=== PATIENT | male | born 1970 | race Caucasian/White ===

== ENCOUNTER 2016-07-25 11:50 | Observation (INO) ==
--- NOTE | 2016-07-25 11:57 | Emergency Department Note ---
Disposition Clinical Impression: Chest pain Disposition: Admitted As Inpatient Condition: Fair General Adult HPI - General Stated complaint: Chest pain Time Seen by Provider: 07/25/16 11:53 - Related Data Home Medications Medication Instructions Recorded Confirmed Lisinopril [Zestril] 20 mg PO DAILY 07/25/16 07/25/16 Multivitamin [Multi-Day Vitamins] 1 tab PO DAILY 07/25/16 07/25/16 Omeprazole [PriLOSEC] 20 mg PO DAILY 07/25/16 07/25/16 Allergies Allergy/AdvReac Type Severity Reaction Status Date / Time bupropion [From Wellbutrin] Allergy Hives Verified 03/28/15 11:56 Past Medical History - Past Medical History Medical history: Reports: hypertension - Social History Smoking Status: Former smoker (+second hand smoke exposure) Smokeless Tobacco Status: No Alcohol use: Reports: occasionally Course Vital Signs Temperature 98.6 F 07/25/16 11:52 Pulse Rate 76 07/25/16 11:52 Respiratory Rate 18 07/25/16 11:52 Blood Pressure 166/97 07/25/16 11:52 O2 Sat by Pulse Oximetry 97 07/25/16 11:52 Temperature 98.3 F 07/25/16 18:43 Pulse Rate 53 07/25/16 18:43 Respiratory Rate 17 07/25/16 18:43 Blood Pressure 138/86 07/25/16 18:43 O2 Sat by Pulse Oximetry 98 07/25/16 18:43 Medical Decision Making - Lab Data Result diagrams: 07/25/16 12:23 07/25/16 12:23 Lab Results 07/25/16 07/25/16 07/25/16 Range/Units 12:23 12:23 12:23 WBC 7.8 (4.3-11.1) K/mcL RBC 4.74 (4.19-5.50) M/mcL Hgb 14.3 (12.9-16.9) g/dL Hct 41.8 (37.5-50.1) % MCV 88.2 (83.0-100.0) fL MCH 30.2 (28.0-33.3) pg MCHC 34.2 (31.6-35.5) g/dL RDW 12.4 (11.5-14.5) % Plt Count 274 (140-400) K/mcL MPV 9.8 (9.4-12.4) fL Immature Gran % 0.4 (0-4) % Seg Neutrophils % 63.6 % Lymphocytes % 25.1 % Monocytes % 6.3 % Eosinophils % 3.8 % Basophils % 0.8 % Neutrophils # 5.0 (1.6-8.9) K/mcL Lymphocytes # 2.0 (0.6-4.6) K/mcL Monocytes # 0.5 (0.0-1.3) K/mcL Eosinophils # 0.3 (0.0-0.6) K/mcL Basophils # 0.1 (0.0-0.2) K/mcL PT 11.5 (9.4-12.1) Seconds INR 1.1 APTT 37.2 H (26.0-36.0) Seconds Sodium 141 (136-145) mEq/L Potassium 3.9 (3.5-4.5) mEq/L Chloride 108 (98-109) mEq/L Carbon Dioxide 25 (19-29) mEq/L BUN 19 (8-26) mg/dL Creatinine 0.91 (0.72-1.25) mg/dL Est GFR ( Amer) > 60 (> 60) Est GFR (Non-Af Amer) > 60 (> 60) BUN/Creatinine Ratio 21 (6-26) Glucose 121 H (70-99) mg/dL Calculated Osmolality 296 (280-300) Calcium 8.9 (8.6-10.8) mg/dL Troponin I (0-0.03) ng/mL 07/25/16 Range/Units 12:23 WBC (4.3-11.1) K/mcL RBC (4.19-5.50) M/mcL Hgb (12.9-16.9) g/dL Hct (37.5-50.1) % MCV (83.0-100.0) fL MCH (28.0-33.3) pg MCHC (31.6-35.5) g/dL RDW (11.5-14.5) % Plt Count (140-400) K/mcL MPV (9.4-12.4) fL Immature Gran % (0-4) % Seg Neutrophils % % Lymphocytes % % Monocytes % % Eosinophils % % Basophils % % Neutrophils # (1.6-8.9) K/mcL Lymphocytes # (0.6-4.6) K/mcL Monocytes # (0.0-1.3) K/mcL Eosinophils # (0.0-0.6) K/mcL Basophils # (0.0-0.2) K/mcL PT (9.4-12.1) Seconds INR APTT (26.0-36.0) Seconds Sodium (136-145) mEq/L Potassium (3.5-4.5) mEq/L Chloride (98-109) mEq/L Carbon Dioxide (19-29) mEq/L BUN (8-26) mg/dL Creatinine (0.72-1.25) mg/dL Est GFR ( Amer) (> 60) Est GFR (Non-Af Amer) (> 60) BUN/Creatinine Ratio (6-26) Glucose (70-99) mg/dL Calculated Osmolality (280-300) Calcium (8.6-10.8) mg/dL Troponin I 0.00 (0-0.03) ng/mL Attestation Statement - Attestation Attestation: I examined this patient and my medical decision-making was reviewed with the COLLECTION SYSTEM[employer] MODELER/PA/Advanced Practice Nurse/Resident Physician. I agree with the documented findings, disposition and treatment plan as described except to the extent set forth below. face to face time provided Patient presents with chest pain. He appears in no acute distress on exam. EKG reviewed by me. Patient evaluated in conjunction with the resident physician Dr. Tavera
[2016-07-25] MEDS ORDERED: 0.9 % Sodium Chloride 500 ML IVC ONE (12:00)
[2016-07-25] MEDS ORDERED: Nitroglycerin 0.4 MG TAB.SUBL SL ONE (12:00)
[2016-07-25] MEDS ORDERED: Aspirin 81 MG TAB.CHEW PO ONE (12:00)
--- NOTE | 2016-07-25 12:07 | Emergency Department Note ---
Disposition Clinical Impression: Chest pain Disposition: Admitted As Inpatient Condition: Fair Referrals: Kevin Burrows MD [Primary Care Provider] - Time of Disposition: 13:24 Chest Pain HPI - General Chief Complaint: ED Chest Pain Stated Complaint: Chest pain Time Seen by Provider: 07/25/16 11:53 Source: patient Mode of arrival: ambulatory Limitations: no limitations Vital Signs Reviewed: Yes Nursing Notes Reviewed: Yes - History of Present Illness HPI Narrative: Patient presents to the ED with the chief complaint of chest pain. Patient states he is relatively healthy. He used to have high blood pressure, that this resolved a few years ago after he lost weight and quit smoking. States he has only recently been placed back on lisinopril due to recurrent high blood pressure. States that over the last week he has had intermittent chest discomfort. States that sometimes it will happen while he is at work at [employer] and other times it will happen when he is lying still. He describes it as a very sore type pain in his left upper outer chest and states that it almost feels like it is bruised but he has no injury and it does not really hurt to push on it. He also describes a heavy pressure in his chest at times. He states that when this pain comes on, he will get short of breath and feel very lightheaded like he is going to pass out. He states he has had a few near syncopal episodes in the last week. He was at a golf tournament last week and could not finish the last hold due to a near syncopal episode. He attributed that to dehydration, but was having similar symptoms again afterwards. He presents today because while he was at work. He went to have his blood pressure monitored and it was very elevated. They asked him about his chest and he stated that he was still having some chest discomfort, so they transferred him here. Has no history of coronary artery disease, but is also never been evaluated to his knowledge. No family history. No history DVT or PE. No history of malignancy. Severity scale (1-10): 3 - Related Data Home Medications Medication Instructions Recorded Confirmed Simvastatin 03/28/15 Previous Rx's Medication Instructions Recorded Albuterol Sulfate [Albuterol 2 puff IH Q4HR PRN #1 unit 03/28/15 Inhaler] Azithromycin [Azithromycin 6-Tab 250 mg PO DAILY #6 tab 03/28/15 Pack] Ipratropium/Albuterol Neb [Duoneb] 3 ml IH Q4HR PRN #50 vial.neb 03/28/15 Nebulizer Accessories [Pillow Mask] 1 each MC PRN PRN #1 each 03/28/15 PredniSONE [Prednisone] 40 mg PO DAILY #10 tablet 03/28/15 Promethazine/Dextromethorphan 5 ml PO Q4H PRN #120 ml 03/28/15 [Promethazine-Dm Syrup] Allergies Allergy/AdvReac Type Severity Reaction Status Date / Time bupropion [From Wellbutrin] Allergy Hives Verified 03/28/15 11:56 All systems ED: reviewed and negative except as stated. Constitutional: Reports: weakness (generalized during near syncopal episode ) Eyes: Denies: vision change Cardiovascular: Reports: chest pain, syncope (near ). Denies: dyspnea on exertion Respiratory: Reports: dyspnea Neurological: Reports: weakness (generalized during near syncope episodes ) Chest Pain PMH - Past Medical History Medical history: Reports: hypertension - Social History Smoking Status: Former smoker (+second hand smoke exposure) Alcohol use: Reports: occasionally Drug use: Reports: none Physical Exam - General Limitations: no limitations General appearance: alert, in no apparent distress - Head Head exam: atraumatic, normocephalic, normal inspection - Eye Eye exam: Present: normal appearance, PERRL, EOMI - ENT ENT exam: normal exam, normal oropharynx, mucous membranes moist - Neck Neck exam: Present: normal inspection, full ROM, trachea midline - Chest Chest inspection: Present: normal inspection, symmetric chest wall rise. Absent : tenderness (No reproducible chest wall tenderness) - Respiratory Respiratory exam: Present: normal lung sounds bilaterally - Cardiovascular Cardiovascular exam: Present: regular rate, normal rhythm, normal heart sounds - Abdominal Exam Abdominal exam: Present: soft, Non-Tender. Absent: tenderness, distention, guarding, rebound, rigidity - Extremities Exam Extremities exam: Present: normal inspection, full ROM, normal capillary refill. Absent: pedal edema - Neurological Exam Neurological exam: Present: alert, oriented X3 - Psychiatric Psychiatric exam: Present: normal affect, normal mood - Skin Skin exam: Present: warm, dry, intact, normal color Course Course Narrative: 45 -year-old male in no acute distress presenting with intermittent left upper outer chest pain and heaviness. States it feels like a bruise, but has not done anything to bruise it. It comes and goes. Concern due to distant family members having heart disease around his age. - Reevaluation(s) Reevaluation #1: Labs are unremarkable. Chest x-ray is normal. EKG is normal. However, the patient is describing some concerning symptoms for angina. The nitroglycerin did relieve his pain. After 1 dose. He is also complaining of these exertional near syncope episodes. A bedside ultrasound performed by another resident showed very poor contractility and suspected low EF. This was shown to the hospitalist and agreed. We will admit the patient for further workup. He has not had a cardiac workup previously and I do think he would benefit given his symptoms. Patient's agreeable with plan. Vital Signs Temperature 98.6 F 07/25/16 11:52 Pulse Rate 76 07/25/16 11:52 Respiratory Rate 18 07/25/16 11:52 Blood Pressure 166/97 07/25/16 11:52 O2 Sat by Pulse Oximetry 97 07/25/16 11:52 Temperature 98.6 F 07/25/16 11:52 Pulse Rate 64 07/25/16 13:15 Respiratory Rate 18 07/25/16 13:15 Blood Pressure 141/88 07/25/16 13:15 O2 Sat by Pulse Oximetry 97 07/25/16 13:15 Chest Pain - Lab Data Result diagrams: 07/25/16 12:23 07/25/16 12:23 Lab Results 07/25/16 07/25/16 07/25/16 Range/Units 12:23 12:23 12:23 WBC 7.8 (4.3-11.1) K/mcL RBC 4.74 (4.19-5.50) M/mcL Hgb 14.3 (12.9-16.9) g/dL Hct 41.8 (37.5-50.1) % MCV 88.2 (83.0-100.0) fL MCH 30.2 (28.0-33.3) pg MCHC 34.2 (31.6-35.5) g/dL RDW 12.4 (11.5-14.5) % Plt Count 274 (140-400) K/mcL MPV 9.8 (9.4-12.4) fL Immature Gran % 0.4 (0-4) % Seg Neutrophils % 63.6 % Lymphocytes % 25.1 % Monocytes % 6.3 % Eosinophils % 3.8 % Basophils % 0.8 % Neutrophils # 5.0 (1.6-8.9) K/mcL Lymphocytes # 2.0 (0.6-4.6) K/mcL Monocytes # 0.5 (0.0-1.3) K/mcL Eosinophils # 0.3 (0.0-0.6) K/mcL Basophils # 0.1 (0.0-0.2) K/mcL PT 11.5 (9.4-12.1) Seconds INR 1.1 APTT 37.2 H (26.0-36.0) Seconds Sodium 141 (136-145) mEq/L Potassium 3.9 (3.5-4.5) mEq/L Chloride 108 (98-109) mEq/L Carbon Dioxide 25 (19-29) mEq/L BUN 19 (8-26) mg/dL Creatinine 0.91 (0.72-1.25) mg/dL Est GFR ( Amer) > 60 (> 60) Est GFR (Non-Af Amer) > 60 (> 60) BUN/Creatinine Ratio 21 (6-26) Glucose 121 H (70-99) mg/dL Calculated Osmolality 296 (280-300) Calcium 8.9 (8.6-10.8) mg/dL Troponin I (0-0.03) ng/mL 07/25/16 Range/Units 12:23 WBC (4.3-11.1) K/mcL RBC (4.19-5.50) M/mcL Hgb (12.9-16.9) g/dL Hct (37.5-50.1) % MCV (83.0-100.0) fL MCH (28.0-33.3) pg MCHC (31.6-35.5) g/dL RDW (11.5-14.5) % Plt Count (140-400) K/mcL MPV (9.4-12.4) fL Immature Gran % (0-4) % Seg Neutrophils % % Lymphocytes % % Monocytes % % Eosinophils % % Basophils % % Neutrophils # (1.6-8.9) K/mcL Lymphocytes # (0.6-4.6) K/mcL Monocytes # (0.0-1.3) K/mcL Eosinophils # (0.0-0.6) K/mcL Basophils # (0.0-0.2) K/mcL PT (9.4-12.1) Seconds INR APTT (26.0-36.0) Seconds Sodium (136-145) mEq/L Potassium (3.5-4.5) mEq/L Chloride (98-109) mEq/L Carbon Dioxide (19-29) mEq/L BUN (8-26) mg/dL Creatinine (0.72-1.25) mg/dL Est GFR ( Amer) (> 60) Est GFR (Non-Af Amer) (> 60) BUN/Creatinine Ratio (6-26) Glucose (70-99) mg/dL Calculated Osmolality (280-300) Calcium (8.6-10.8) mg/dL Troponin I 0.00 (0-0.03) ng/mL Heart Score - Score History: Moderately Suspicious EKG: Normal Age: 45-65 Risk Factors: Equal/Greater than 3 risk factor or history of atherosclerotic disease Troponin: Less than normal limit HEART Score Total: 4 S.B.A.RLiat - Yeison.Hilda.Roxana Situation: Demographics, MOA Background: Presenting Complaint, Relevant PMH, Meds, & Allergies Assessment: Vital Signs, Course and respsone to treatment, Exam Concerns, Patient/Family Expectation, Pertinant Lab Results, Outstanding Labs Recommendation: Recommendation based on pending studies, treatments, or consults S.B.A.Rufina Report Given to: Dr. Johnson Flaherty Repor Time: 13:52
[2016-07-25 12:32] LABS: Basophils # 0.1 K/mcL (0.0-0.2); Basophils % 0.8 %; Eosinophils # 0.3 K/mcL (0.0-0.6); Eosinophils % 3.8 %; Hematocrit 41.8 % (37.5-50.1); Hemoglobin 14.3 g/dL (12.9-16.9); Immature Granulocytes % 0.4 % (0-4); Lymphocytes % 25.1 %; Mean Corpuscular HGB Conc 34.2 g/dL (31.6-35.5); Mean Corpuscular Hemoglobin 30.2 pg (28.0-33.3); Mean Corpuscular Volume 88.2 fL (83.0-100.0); Mean Platelet Volume 9.8 fL (9.4-12.4); Monocytes # 0.5 K/mcL (0.0-1.3); Monocytes % 6.3 %; Platelet Count 274 K/mcL (140-400); Red Blood Count 4.74 M/mcL (4.19-5.50); Red Cell Distribution Width 12.4 % (11.5-14.5); Segmented Neutrophils % 63.6 %
[2016-07-25 12:35] LABS: INR 1.1; Prothrombin Time 11.5 Seconds (9.4-12.1)
[2016-07-25 12:37] LABS: Activated Partial Thrombo Time 37.2 Seconds (26.0-36.0)
[2016-07-25 12:46] LABS: BUN/Creatinine Ratio 21 (6-26); Blood Urea Nitrogen 19 mg/dL (8-26); Calcium 8.9 mg/dL (8.6-10.8); Carbon Dioxide 25 mEq/L (19-29); Chloride 108 mEq/L (98-109); Glucose 121 mg/dL (70-99); Osmolality,Calculated 296 (280-300); Potassium 3.9 mEq/L (3.5-4.5); Sodium 141 mEq/L (136-145); eGFR For African Americans > 60 (> 60); eGFR For Non-African Americans > 60 (> 60)
[2016-07-25] MEDS ORDERED: Naloxone 0.4 MG/ML INJ IVP PRN (15:31)
--- NOTE | 2016-07-25 15:48 | Internal Med History&Physical ---
Date of Encounter: 07/25/16 Time of Encounter: 15:00 Assessment and Plan (1) Chest pain Current visit: Yes Status: Acute Assess: Patient presents with new onset of chest pain in his left upper chest that he describes as a dull ache in his upper left chest. He also reports he has been experienced dizziness and lightheadedness five days ago while golfing which resulted in a near syncopal episode. His blood pressure was elevated today which is why he sought treatment at the ED. Patient has no history of cardiac issues, coronary artery disease, DVTs or PEs. Plan: Holter 24-hour monitor EV echocardiogram ordered Trend troponins x2 81 mg aspirin therapy ordered Heparin 5,000 SQ Q8HR DVT prophylaxis ordered Continue Lisinopril Monitor patient's vital signs Cardiology called and will keep patient on their radar. Will add consult if EV echo results are abnormal. Qualifiers: Chest pain type: unspecified Qualified Code(s): R07.9 - Chest pain, unspecified (2) Hypertension Current visit: Yes Status: Acute Assess: Patient reports he used to have HTN when he was overweight and smoked, but this resolved when he lost weight and quit smoking. He states he is now taking Lisinopril because his BP has become elevated recently. His blood pressure was elevated today which is why he sought treatment at the ED. Patient has no history of cardiac issues, coronary artery disease, DVTs or PEs. Plan: Continue Lisinopril Monitor patient's vital signs Qualifiers: Hypertension type: essential hypertension Qualified Code(s): I10 - Essential (primary) hypertension (3) DVT prophylaxis Current visit: Yes Status: Acute Assess: Patient placed on DVT prophylaxis due to current complaint of chest pain and inpatient status. Plan: Heparin 5,000 units SQ Q8HR ordered Monitor patient for signs of calf pain or SOB Internal Medicine - H&P: HPI Chief complaint: Chest pain Admitted From: Emergency Dept Plans for Post Hospital Care: Home History of present illness: Mr. Santiago is a 45 year old male who presents from the ED with chief complaint of left-sided chest pain that he describes as a dull ache in his upper left chest. He also reports he has been experienced dizziness and lightheadedness five days ago while golfing which resulted in a near syncopal episode. His blood pressure was elevated today which is why he sought treatment at the ED. Patient has no history of cardiac issues, coronary artery disease, DVTs or PEs. Mr. Santiago also reports that he began taking Omeprazole when he began experiencing esophageal stricture symptoms which made him regurgitate food. He reports these symptoms have subsided since taking the Omeprazole regularly. Patient reports he used to have HTN when he was overweight and smoked, but this resolved when he lost weight and quit smoking. He states he is now taking Lisinopril because his BP has become elevated recently. Patient will be admitted as observation status with Holter monitor, EV echocardiogram, and troponins trended x2. Cardiology to be consulted if EV echo results are abnormal. Patient to be monitored closely. Past Med Surg Social Fam HX - Past Medical History Medical history: GERD, hypertension Psychiatric history: no psych history - Social History Smoking Status: Former smoker Smokeless Tobacco Status: No Alcohol use: occasionally Drug use: none Occupational status: employed Current living situation: Home, With Family Activity Level: Independent ambulation, Very active Recent Out of Country Travel Within the Last 8 Weeks: No Exposure or Possible Exposure to Illness During Travel: No - Family History Father Race: Family Member Ethnicity: Non- Living Status: Still Living Hx Family Medical Disorders: No Mother Race: Family Member Ethnicity: Non- Living Status: Still Living Hx Family Musculoskeletal Disorders: Yes (Arthritis) Brother Race: Family Member Ethnicity: Non- Living Status: Still Living Hx Family Medical Disorders: No Internal Medicine - H&P: Meds Lisinopril [Zestril] 20 mg PO DAILY 07/25/16 [History] Multivitamin [Multi-Day Vitamins] 1 tab PO DAILY 07/25/16 [History] Omeprazole [PriLOSEC] 20 mg PO DAILY 07/25/16 [History] Allergies bupropion [From Wellbutrin] Allergy (Verified 03/28/15 11:56) Hives All Systems PM: A 10-system review of systems was performed and is negative for pertinent findings except as documented above in the HPI. - Constitutional Constitutional: no chills, no fever(s), no night sweats - EENT Eyes: no change in vision, no discharge, no pain, no photophobia Ears: no ear discharge, no ear pain, no tinnitus Nose, mouth and throat: no dysphagia, no nasal discharge, no neck pain, no sore throat - Breasts Breasts: as per HPI - Cardiovascular Cardiovascular ROS IM: as per HPI, chest pain (Upper left chest, described as dull ache), lightheadedness - Respiratory Respiratory: no cough, no dyspnea, no wheezing, no excessive phlegm production - Gastrointestinal Gastrointestinal: no abdominal pain, no diarrhea, no hematemesis, no hematochezia, no melena, no nausea, no vomiting - Genitourinary Genitourinary ROS male: as per HPI - Musculoskeletal Musculoskeletal ROS IM: no numbness, no tingling - Integumentary Integumentary IM: no rash, no unusual bruising - Neurological Neurological ROS: no confusion, no convulsions, no focal weakness, no numbness, no tingling, no tremor(s) - Psychiatric Psychiatric: as per HPI - Endocrine Endocrine IM: as per HPI - Hematologic/Lymphatic Hematologic/Lymphatic: no easy bruising - Allergic/Immunologic Allergic/Immunologic: as per HPI - Constitutional Vitals: Temp Pulse Resp BP Pulse Ox 98.9 F 67 16 130/80 95 07/25/16 14:16 07/25/16 14:16 07/25/16 14:16 07/25/16 14:16 07/25/16 14:16 General appearance: Present: cooperative, A&O X 3, pleasant, no acute distress, answers questions appropriately - Head Head exam: Present: atraumatic, normocephalic - Eye Eye exam: Present: PERRL, conjuntiva pink, sclera anicteric Pupils: Present: PERRL - ENT ENT exam: Present: normal exam, normal external ear exam - Neck Neck exam general surgery: Present: supple, trachea midline. Absent: lymphadenopathy - Respiratory Respiratory exam: Present: CTAB. Absent: accessory muscle use, rales, rhonchi, wheezes - Cardiovascular Cardiovascular exam: Present: RRR, +S1, +S2. Absent: diastolic murmur, gallop, rubs, systolic murmur - GI/Abdominal GI/Abdominal exam: Present: normal bowel sounds, soft, no peritoneal signs. Absent: distended, tenderness - Rectal Rectal exam: Present: deferred - Additional comments: exam deferred. - Extremities Exam Extremities exam: Present: warm, radial pulses palpable and symetrical. Absent : calf tenderness, cyanotic, pedal edema - Back Exam Back exam: Present: normal inspection - Neurological Exam Neurological exam: Present: CN II-XII intact, oriented X3, no focal deficits. Absent: pronater drift, facial droop, speech deficit - Psychiatric Psychiatric exam: Present: normal affect, normal mood - Skin Skin exam: Present: dry, intact Internal Med - H&P Results - Labs CBC & Chem 7: 07/25/16 12:23 07/25/16 12:23 - EKG Data EKG shows normal: sinus rhythm Rate: normal - EKG Data Prior EKG available for review: yes When compared to previous EKG: there is no significant change EKG comments: 07/25/16 16:05 EKG dated 03/28/15 shows sinus rhythm with sinus arrhythmia. EKG dated 07/25/16 shows sinus rhythm and normal EKG.
--- NOTE | 2016-07-25 15:54 | Event Note ---
Date of Encounter: 07/25/16 Time of Encounter: 15:52 Patient seen and examined with nurse practitioner. 45-year-old male with history of hypertension presents with non-anginal chest pain. Initial troponin normal. EKG without ST segment shifts. Rule out acute coronary syndrome. ER physician mentioned decreased ejection fraction on a limited bedside echocardiogram. He does not have any symptoms or signs of heart failure. Will check for formal echocardiogram.
[2016-07-25] MEDS: *HR* Heparin 5,000 UNIT/ML VIAL SQ SCH (21:08)
[2016-07-26 00:46] LABS: Basophils # 0.1 K/mcL (0.0-0.2); Basophils % 0.9 %; Eosinophils # 0.4 K/mcL (0.0-0.6); Eosinophils % 4.5 %; Hematocrit 38.9 % (37.5-50.1); Hemoglobin 13.3 g/dL (12.9-16.9); Immature Granulocytes % 0.4 % (0-4); Immature Platelets 3.5 % (1.1-6.1); Lymphocytes # 3.4 K/mcL (0.6-4.6); Lymphocytes % 35.9 %; Mean Corpuscular HGB Conc 34.2 g/dL (31.6-35.5); Mean Corpuscular Hemoglobin 30.8 pg (28.0-33.3); Mean Platelet Volume 10.5 fL (9.4-12.4); Monocytes # 0.8 K/mcL (0.0-1.3); Monocytes % 8.3 %; Neutrophils # 4.8 K/mcL (1.6-8.9); Platelet Count 265 K/mcL (140-400); Red Blood Count 4.32 M/mcL (4.19-5.50); Red Cell Distribution Width 12.5 % (11.5-14.5)
[2016-07-26 01:04] LABS: Alanine Aminotransferase 29 Units/L (0-55); Albumin 3.5 g/dL (3.5-5.0); Albumin/Globulin Ratio 1.3 (1.1-2.2); Alkaline Phosphatase 41 Units/L (38-126); Aspartate Amino Transferase 18 Units/L (5-34); BUN/Creatinine Ratio 18 (6-26); Bilirubin,Total 0.5 mg/dL (0.2-1.2); Blood Urea Nitrogen 16 mg/dL (8-26); Calcium 8.8 mg/dL (8.6-10.8); Carbon Dioxide 27 mEq/L (19-29); Chloride 107 mEq/L (98-109); Chol/HDL Ratio 6.2 (0-4.9); Cholesterol 205 mg/dL (< 200); Globulin 2.8 g/dL (2.4-3.5); Glucose 112 mg/dL (70-99); HDL Cholesterol 33 mg/dL (40-59); LDL Cholesterol,Calculated 134 mg/dL (0-99); Osmolality,Calculated 296 (280-300); Potassium 3.6 mEq/L (3.5-4.5); Sodium 142 mEq/L (136-145); Total Protein 6.3 g/dL (6.0-8.3); Triglycerides 192 mg/dL (< 150); eGFR For African Americans > 60 (> 60); eGFR For Non-African Americans > 60 (> 60)
[2016-07-26] MEDS: *HR* Heparin 5,000 UNIT/ML VIAL SQ SCH (06:19)
[2016-07-26] MEDS ORDERED: Multivit/Ca/Min/Fe/FA 1 TAB TABLET PO SCH (09:00)
[2016-07-26] MEDS ORDERED: Lisinopril 20 MG TABLET PO SCH (09:00)
[2016-07-26] MEDS ORDERED: Aspirin Enteric Coated 81 MG Tablet PO SCH (09:00)
--- NOTE | 2016-07-26 09:23 | ECHO - Doppler Report ---
Echocardiogram Name: Cody Santiago Date of Study: 07/25/2016 Date: 1970 Ht: 68.0 in Medical Record#: [id number] Age: 45 Wt: 177.0 lb Gender: Male BSA: 1.94 Order #: [id number] Location: [facility] Room #: [id number] Reading Physician: Selvin Esteves MD, [facility] Amplifier Mechanic: Joaquina Guerin Ordering Physician: Bryan Abraham CNP Primary Physician: Kevin Burrows MD Indications: Chest pain Impressions: Normal LV systolic function, LVEF 60%. Normal left ventricular diastolic function. Normal right ventricular size and function. No significant valvular dysfunction. No evidence of pulmonary hypertension. Left Ventricular Wall Motion: Rest Echo Findings All wall segments showed normal motion. Findings: Study Quality * Technically adequate exam. ECG Findings * Normal sinus rhythm. Left Ventricle * Normal LV systolic function, LVEF 60%. * Normal LV chamber size and wall thickness. * Normal left ventricular diastolic function. Right Ventricle * Normal right ventricular size and function. Left Atrium * Normal left atrial size. Right Atrium * Normal right atrial size. Aorta * Normally sized aortic root. Pericardium * There is no pericardial effusion present. IVC * Normal IVC dimensions and inspiratory collapse. Aortic Valve * Trileaflet aortic valve. * No aortic stenosis. * No aortic regurgitation. Mitral Valve * Normal mitral valve structure. * No mitral stenosis. * Trace mitral regurgitation. Tricuspid Valve * Tricuspid valve not well visualized. * No tricuspid stenosis. * Trace tricuspid regurgitation. * No evidence of pulmonary hypertension. Pulmonic Valve * Pulmonic valve not well visualized. * No pulmonic stenosis. * No pulmonic regurgitation. History Hypertension Measurements: BP: 138/ 86 2D Normal Values RVIDd: 3.60 cm IVSd: 1.00 cm 0.6 - 1.0 cm LVIDd: 4.20 cm 3.7 - 5.6 cm LVPWd: 1.00 cm 0.6 - 1.1 cm LVIDs: 2.90 cm 1.5 - 3.6 cm AO: 3.20 cm < 4.0 cm %FS: 31.00 cm >25 % LA volume: 39 Mitral Valve Peak E:1.06 m/sec Peak A:.73 m/sec E/A Ratio:1.5 Tricuspid Valve TV Regurg Peak Grad: 13.00mmHg TV Regurg Peak Yuriy: 1.79m/sec Updated by Selvin Esteves MD, [facility] on 07/26/2016 9:17:45 AM electronically signed on 07/26/2016 9:18:08 AM with status of Final Wall Motion Mendez: 1=Normal, 2=Hypokinesis, 3=Akinesis, 4=Dyskinesis, 5=Aneurysmal, 6=Hyperkinetic, X=Not Visualized (Blank)=Missing
--- NOTE | 2016-07-26 10:30 | Electrocardiograph Report ---
[place] [address] Test Date: 2016-07-25 Pat Name: Cody Santiago Department: 103 Room: 3B Gender: M Manager Gar[employer]: MSC : 1970 Requested By: Hernan Tavera Order Number: [id number] Reading MD: Jorge Wiley Measurements Intervals Spring Rate: 73 P: 56 FL: 154 QRS: 46 QRSD: 87 T: 40 QT: 343 QTc: 369 Interpretive Statements SINUS RHYTHM Electronically Signed On 07-26-2016 10:28:43 EDT by Jorge Wiley
[2016-07-26 11:29] VITALS: BP 147/91
--- NOTE | 2016-07-26 12:59 | Discharge Summary ---
Date of Encounter: 07/26/16 Time of Encounter: 10:30 - Discharge Diagnosis (1) Chest pain Priority: Primary Status: Acute Comments: Chest x-ray negative. Troponins negative 3. Echocardiogram unremarkable with ejection fraction of 60%. Acute coronary syndrome ruled out. Outpatient stress test tomorrow. Qualifiers: Chest pain type: unspecified Qualified Code(s): R07.9 - Chest pain, unspecified (2) Hypertension Priority: Secondary Status: Chronic Comments: Controlled with his regular dose of lisinopril, follow up outpatient Qualifiers: Hypertension type: essential hypertension Qualified Code(s): I10 - Essential (primary) hypertension (3) DVT prophylaxis Priority: Primary Status: Acute Comments: Subcutaneous heparin while admitted - Discharge Medications Home Medications: Lisinopril [Zestril] 20 mg PO DAILY 07/25/16 [History] Multivitamin [Multi-Day Vitamins] 1 tab PO DAILY 07/25/16 [History] Omeprazole [PriLOSEC] 20 mg PO DAILY 07/25/16 [History] Allergies/Adverse Reactions: Allergies bupropion [From Wellbutrin] Allergy (Verified 03/28/15 11:56) Hives Procedures/tests Complete & Pending: Procedures Performed prior 72 hours Category Date Time Status EV echocardiogram Routine Y 07/25/16 15:35 Completed Date of admission: 07/25/16 13:53 Primary care physician: Kevin Burrows MD Discharging clinician: Palak Worthy Anticipated date of discharge: 07/26/16 - Patient Status Disposition: Home, Self-Care Condition: Good Functional capacity at discharge: independent ambulation Overall status at discharge: patient is back to baseline - Ambulatory Orders Ambulatory Orders: SP exercise nuclear stress Time Frame: 1 Day, Facility: [facility], Location: Cardiopulmonary Svc - Discharge Instructions Instructions: Cardiac Stress Test (DC), Chest Pain (DC), Hypertension (DC) Follow Up With: Kevin Burrows MD [Primary Care Provider] - 08/02/16 1:00 pm Additional Instructions: Follow-up with primary care provider as scheduled. Report for stress test tomorrow. - Diet and Activity Activity: increase activity as tolerated Diet: low salt diet Hospital course: Mr. Santiago is a 45 year old male with past medical history of hypertension, GERD , former tobacco abuse. Patient presented to the emergency department chief complaint of left-sided chest pain described as a dull ache to his left upper chest associated with dizziness and lightheadedness and near syncopal episode approximately 5 days prior to presentation while golfing. Pain had been lasting for approximately 1-1/2 weeks prior to presentation and his blood pressure was elevated on the day of presentation which prompted his presentation to the emergency Department. Patient with no known cardiac or coronary artery disease history. Patient also had started to take omeprazole at home. Workup in the emergency department unremarkable. Chest x-ray negative. Patient was admitted to the hospitalist service for further evaluation and management. Troponins negative 3. Echocardiogram normal with ejection fraction of 60%. Patient continued to have intermittent bouts of chest aching but denied overt pain during this admission. Acute coronary syndrome ruled out however the patient was scheduled for an outpatient stress test on the day following discharge secondary to his ongoing bouts of chest discomfort. No ECG changes. He was discharged home in stable condition with follow-up tomorrow for an outpatient stress test. ITS Impressions Chest X-Ray 07/25/16 12:02 IMPRESSION: No acute cardiopulmonary disease. D/ / Constantine Bill MD / Constantine Bill MD Interpreting Provider: Constantine Bill MD Echocardiogram impressions: Normal LV systolic function, LVEF 60%. Normal left ventricular diastolic function. Normal right ventricular size and function. No significant valvular dysfunction. No evidence of pulmonary hypertension. - Time Spent with Patient Total time spent providing and/or coordinating discharge services: - Constitutional Vitals: Temp Pulse Resp BP Pulse Ox 97.6 F 66 14 147/91 96 07/26/16 11:26 07/26/16 11:26 07/26/16 11:26 07/26/16 11:26 07/26/16 11:26 General appearance: Present: cooperative, A&O X 3, pleasant, no acute distress, answers questions appropriately - Head Head exam: Present: atraumatic, normocephalic - Eye Eye exam: Present: PERRL, conjuntiva pink, sclera anicteric Pupils: Present: PERRL - Neck Neck exam general surgery: Present: supple, trachea midline. Absent: lymphadenopathy - Respiratory Respiratory exam: Present: CTAB. Absent: accessory muscle use, rales, respiratory distress, rhonchi, wheezes - Cardiovascular Cardiovascular exam: Present: RRR, +S1, +S2. Absent: diastolic murmur, gallop, rubs, systolic murmur - GI/Abdominal GI/Abdominal exam: Present: normal bowel sounds, soft, no peritoneal signs. Absent: distended, tenderness - Extremities Exam Extremities exam: Present: warm, radial pulses palpable and symetrical. Absent : calf tenderness, cyanotic, pedal edema - Neurological Exam Neurological exam: Present: alert, CN II-XII intact, normal gait, oriented X3, no focal deficits, strengths equal and symetr throughout. Absent: pronater drift, facial droop, speech deficit - Skin Skin exam: Present: dry, intact, normal color, warm
== END 2016-07-26 13:45 | disposition home or self-care (01) ==
LOC: 3BNU 11:50 → EMEROO 11:50 → 3BNU 14:13
PROVIDERS: ADMIT Nurse Practitioner Family; ATTEND Nurse Practitioner Family